=== PATIENT | female | born 1965 | race Two or more races ===

== ENCOUNTER 2025-09-28 06:31 | Day surgery (SDC) | payer OTHER ==
[2025-09-25 11:13] VITALS: BP 149/82
[~2025-09-28] VITALS: Ht 160 cm; Wt 90.7 kg
[~2025-09-28 06:31] MED LIST: ANASTROZOLE1 MG PO; DILT PO; IRBESARTAN-HCT1 EAC1 PO; LIPIT PO; METHYLPREDNISOLO4 M1 PO; NORFLEX; TYLENOL ARTHRI650 MG PO
[2025-09-28] MEDS ORDERED: CEFAZOLIN SODIUM 1,000 MG VIAL ONE (11:14)
== END 2025-09-28 16:55 | disposition home or self-care (01) ==
LOC: CIR.AMB 06:31
PROVIDERS: ATTEND Surgery
DX: C50.411 Malignant neoplasm of upper-outer quadrant of right female breast (principal); D48.62 Neoplasm of uncertain behavior of left breast; N60.82 Other benign mammary dysplasias of left breast; R59.0 Localized enlarged lymph nodes; D48.7 Neoplasm of uncertain behavior of other specified sites